=== PATIENT | male | born 1995 | race Caucasian/White ===

== ENCOUNTER 2018-06-28 18:04 | Emergency (ER) | payer BC ==
[~2018-06-28] VITALS: Ht 200.7 cm; Wt 171.8 kg
[2018-06-28 18:07] VITALS: BP 141/75; TEMP 97.5
[2018-06-28 18:37] LABS: COLLECTION METHOD CLEAN CATCH
[2018-06-28 18:42] LABS: MUCOUS Present /lpf; PH 6 (5-8); SQUAMOUS EPITHELIAL None Seen /hpf; URINE APPEARANCE Clear; URINE BACTERIA None Seen /hpf; URINE BILIRUBIN Negative (NEGATIVE); URINE BLOOD Negative (NEGATIVE); URINE COLOR Yellow; URINE GLUCOSE Negative (NEGATIVE); URINE KETONE Negative (NEGATIVE); URINE LEUKOCYTE ESTERASE Negative (NEGATIVE); URINE NITRATE Negative (NEGATIVE); URINE PROTEIN(semi-quant) Negative (NEGATIVE); URINE RBC None Seen /hpf; URINE UROBILINOGEN Negative (NEGATIVE)
[2018-06-28 19:04] LABS: BASO # 0.1 (0.0-0.2); BASO % 0.4 % (0.0-2.0); EOS % 0.1 % (0-4.0); GRAN # 9.7 (1.4-6.5); GRAN % 79.4 % (42.2-75.2); HEMATOCRIT 43.3 % (36.0-47.0); LYMPH # 1.6 (1.2-3.4); LYMPH % 12.9 % (20.0-51.0); MEAN CELL VOLUME 82 fl (80.0-95.0); MEAN CORPUSCULAR HEMOGLOBIN 28 pg (26.0-32.0); MEAN CORPUSCULAR HGB CONC 35 g/dl (33.0-37.0); MEAN PLATELET VOLUME 9.2 fl (7.4-10.4); MONO # 0.7 (0.1-0.6); MONO % 5.9 % (1.7-9.3); PLATELET COUNT 317 K/mm3 (130-400); REDCELL DISTRIBUTION WIDTH-CV 12.4 % (11.5-14.5)
[2018-06-28 19:16] LABS: ALBUMIN 4.1 gm/dL (3.5-5.0); BILIRUBIN,TOTAL 0.2 mg/dL (0.0-1.0); CALCIUM 9.1 mg/dL (8.4-10.2); CREATININE, serum 0.77 mg/dL (0.66-1.25); POTASSIUM 4.3 mmol/L (3.4-5.0); TOTAL PROTEIN 7.7 gm/dL (6.4-8.2)
[2018-06-28 19:45] VITALS: PULSE 89
[2018-07-01 09:07] LABS: EBV NUCLEAR ANTIGEN IGG Positive (())
[2018-07-01 09:09] LABS: EBV EARLY ANTIGEN IGG Positive (())
[2018-07-01 09:25] LABS: EBV IGM AB Negative (())
== END 2018-06-28 19:46 | disposition home or self-care (01) ==
LOC: COL.ER 18:04
PROVIDERS: Physician Assistant
DX: B34.9 Viral infection, unspecified (principal); Z88.0 Allergy status to penicillin

== ENCOUNTER 2018-08-20 18:18 | Emergency (ER) | payer BC ==
[~2018-08-20] VITALS: Ht 203.2 cm; Wt 157.3 kg
[2018-08-20 18:19] VITALS: BP 133/84; TEMP 97.6
[2018-08-20 19:49] VITALS: PULSE 90
== END 2018-08-20 19:51 | disposition home or self-care (01) ==
LOC: COL.ER 18:18
DX: S61.221A Laceration with foreign body of left index finger without damage to nail, initial encounter (principal); Z88.0 Allergy status to penicillin; F17.290 Nicotine dependence, other tobacco product, uncomplicated; W26.0XXA Contact with knife, initial encounter; Y92.009 Unspecified place in unspecified non-institutional (private) residence as the place of occurrence of the external cause

== ENCOUNTER → 2018-08-28 | Emergency (ER) | payer BC ==
[2018-08-28 14:41] VITALS: BP 138/76; PULSE 88; TEMP 98.5
== END ==
LOC: COL.ER 14:17
DX: S61.211D Laceration without foreign body of left index finger without damage to nail, subsequent encounter (principal); X58.XXXD Exposure to other specified factors, subsequent encounter

== ENCOUNTER 2019-05-05 20:52 | Emergency (ER) | payer BC ==
[~2019-05-05] VITALS: Ht 200.7 cm; Wt 159.1 kg
[2019-05-05 20:57] VITALS: TEMP 98.4
[2019-05-05 21:36] LABS: BASO % 0.4 % (0.0-2.0); EOS # 0.2 (0.0-0.7); EOS % 1.6 % (0-4.0); GRAN # 6.5 (1.4-6.5); GRAN % 67.8 % (42.2-75.2); HEMATOCRIT 43.4 % (42.0-52.0); HEMOGLOBIN 14.7 g/dl (13.5-18.0); LYMPH # 1.8 (1.2-3.4); LYMPH % 18.6 % (20.0-51.0); MEAN CELL VOLUME 82 fl (80.0-100.0); MEAN CORPUSCULAR HEMOGLOBIN 28 pg (27.0-31.0); MEAN CORPUSCULAR HGB CONC 34 g/dl (33.0-37.0); MEAN PLATELET VOLUME 9.5 fl (7.4-10.4); MONO % 10.9 % (1.7-9.3); PLATELET COUNT 287 K/mm3 (130-400); RED BLOOD COUNT 5.27 M/mm3 (4.20-5.60); REDCELL DISTRIBUTION WIDTH-CV 12.8 % (11.5-14.5)
[2019-05-05 21:50] LABS: ALBUMIN 4.2 gm/dL (3.5-5.0); BILIRUBIN,TOTAL 0.5 mg/dL (0.0-1.0); C-REACTIVE PROTEIN 2.8 mg/dL (0.0-0.9); CALCIUM 9.2 mg/dL (8.4-10.2); CREATININE, serum 0.77 (0.66-1.25); POTASSIUM 4.2 mmol/L (3.4-5.0); TOTAL PROTEIN 7.8 gm/dL (6.4-8.2)
[2019-05-05 23:23] VITALS: BP 131/76; PULSE 76
== END 2019-05-05 23:23 | disposition home or self-care (01) ==
LOC: COL.ER 20:52
PROVIDERS: Emergency Medicine
DX: R10.13 Epigastric pain (principal); R11.0 Nausea; F17.290 Nicotine dependence, other tobacco product, uncomplicated; Z88.0 Allergy status to penicillin
CPT/HCPCS: C9113; J2270; J2405; J2550; J7030

== ENCOUNTER → 2019-05-07 | Outpatient (CLI) | payer BC ==
[2019-05-07 11:37] LABS: BASO % 0.6 % (0.0-2.0); EOS # 0.1 (0.0-0.7); EOS % 1.2 % (0-4.0); GRAN # 4.3 (1.4-6.5); GRAN % 63.2 % (42.2-75.2); HEMATOCRIT 40.9 % (42.0-52.0); HEMOGLOBIN 14.2 g/dl (13.5-18.0); LYMPH # 1.8 (1.2-3.4); LYMPH % 26.5 % (20.0-51.0); MEAN CELL VOLUME 81 fl (80.0-100.0); MEAN CORPUSCULAR HEMOGLOBIN 28 pg (27.0-31.0); MEAN CORPUSCULAR HGB CONC 35 g/dl (33.0-37.0); MEAN PLATELET VOLUME 9.5 fl (7.4-10.4); MONO # 0.5 (0.1-0.6); MONO % 7.8 % (1.7-9.3); PLATELET COUNT 305 K/mm3 (130-400); RED BLOOD COUNT 5.06 M/mm3 (4.20-5.60); REDCELL DISTRIBUTION WIDTH-CV 12.5 % (11.5-14.5)
[2019-05-07 11:53] LABS: ALBUMIN 3.9 gm/dL (3.5-5.0); BILIRUBIN,TOTAL 0.4 mg/dL (0.0-1.0); CALCIUM 9.3 mg/dL (8.4-10.2); CREATININE, serum 0.72 (0.66-1.25); TOTAL PROTEIN 7.2 gm/dL (6.4-8.2)
[2019-05-07 12:10] LABS: ERYTHROCYTE SEDIMENTATION RATE 6 mm/hr (0-15)
== END ==
LOC: COL.LAB 10:53
PROVIDERS: Family Medicine
DX: R10.9 Unspecified abdominal pain (principal)

== ENCOUNTER 2020-09-03 15:34 | Outpatient (RCR) | payer OTHER | END 2020-09-17 15:40 | disposition home or self-care (01) | LOC: WSOH 15:34 | DX: S29.012A Strain of muscle and tendon of back wall of thorax, initial encounter (principal); Y99.0 Civilian activity done for income or pay | CPT/HCPCS: G0283-GP ==

== ENCOUNTER 2020-10-01 14:24 | Outpatient (RCR) | payer OTHER | END 2020-12-16 | disposition home or self-care (01) | LOC: WSOH | DX: S29.012D Strain of muscle and tendon of back wall of thorax, subsequent encounter (principal); Y99.0 Civilian activity done for income or pay ==